=== PATIENT | female | born 1950 | race African-American/Black ===

== ENCOUNTER → 2018-10-19 | Outpatient (CLI) | payer MEDICARE, BC ==
--- NOTE | 2018-10-19 10:24 | CARD ---
MR#: [id number] Date of Study: 10/19/2018 Ordering Physician: JESS GAVIN, Referring Physician: JESS GAVIN Tech: Kalani Holden RDCS APPROVED REPORT EXAM: Two-dimensional and M-mode echocardiogram with Doppler and color Doppler. Other Information Quality : Good INDICATION Hypertension/HCVD 2D DIMENSIONS RVDd3.1 (2.9-3.5cm)Left Atrium(2D)3.6 (1.6-4.0cm) IVSd1.1 (0.7-1.1cm)Aortic Root(2D)2.9 (2.0-3.7cm) LVDd4.9 (3.9-5.9cm)LVOT Diameter2.0 (1.8-2.4cm) PWd1.1 (0.7-1.1cm)LVDs3.2 (2.5-4.0cm) FS (%) 34.1 %SV70.3 ml Aortic Valve AoV Peak Federico.180.3cm/sAoV VTI35.5cm AO Peak GR.13.0mmHgLVOT Peak Federico.116.1cm/s LVOT VTI 25.90cmAO Mean GR.7mmHg GISSEL (VMAX)2.73oc2XJW (VTI)2.32cm2 Mitral Valve MV E Znufcahu96.5cm/sMV DECEL TFZH852ud MV A Tyyddbto957.8cm/sMV XIF64sw E/A Ratio0.8MVA (PHT)2.80cm2 TDI E/Lateral E'9.2E/Medial E'12.3 Tricuspid Valve TR P. Adntsmha908ml/sRAP WSKRXXHG8lcWh TR Peak Gr.68ckFnQMMQ94brAs Pulmonary Vein S1 Xwjardqe38.2cm/sD2 Ysjpexoa51.5cm/s LEFT VENTRICLE The left ventricle is normal size. There is normal left ventricular wall thickness. The left ventricu lar systolic function is normal and the ejection fraction is within normal range. The Ejection Fracti on is 55-60%. There is normal LV segmental wall motion. Transmitral Doppler flow pattern is Grade I-a bnormal relaxation pattern. RIGHT VENTRICLE The right ventricle is normal size. The right ventricular systolic function is normal. ATRIA The left atrium size is normal. The right atrium size is normal. The interatrial septum is intact wit h no evidence for an atrial septal defect or patent foramen ovale as noted on 2-D or Doppler imaging. AORTIC VALVE The aortic valve is calcified but opens well. Doppler and Color Flow revealed no significant aortic r egurgitation. There is no significant aortic valvular stenosis. MITRAL VALVE The mitral valve is calcified but opens well. Mitral annular calcification is mild. There is no evide nce of mitral valve prolapse. There is no mitral valve stenosis. Doppler and Color-flow revealed trac e mitral regurgitation. TRICUSPID VALVE The tricuspid valve is normal in structure and function. Doppler and Color Flow revealed trace to mil d tricuspid regurgitation. The PA pressure was estimated at 37 mmHg. There is no tricuspid valve sten osis. PULMONIC VALVE The pulmonary valve is normal in structure and function. Doppler and Color Flow revealed no pulmonic valvular regurgitation. There is no pulmonic valvular stenosis. GREAT VESSELS The aortic root is normal in size. The ascending aorta is normal in size. The IVC is normal in size a nd collapses >50% with inspiration. PERICARDIAL EFFUSION There is no evidence of significant pericardial effusion. Critical Notification Critical Value: No <Conclusion> The left ventricle is normal size. The left ventricular systolic function is normal and the ejection fraction is within normal range. The Ejection Fraction is 55-60%. There is no significant aortic valvular stenosis. Doppler and Color Flow revealed no significant aortic regurgitation. Doppler and Color-flow revealed trace mitral regurgitation. Doppler and Color Flow revealed trace to mild tricuspid regurgitation. The PA pressure was estimated at 37 mmHg. Signed by : Jaden Ramirez MD Electronically Approved : 10/19/2018 10:23:47
== END | disposition home or self-care (01) ==
LOC: ECHO 08:39
PROVIDERS: ATTEND Internal Medicine Cardiovascular Disease
DX: I08.3 Combined rheumatic disorders of mitral, aortic and tricuspid valves (principal); I11.9 Hypertensive heart disease without heart failure
CPT/HCPCS: 93306

== ENCOUNTER → 2018-10-26 | Outpatient (CLI) | payer MEDICARE, BC ==
--- NOTE | 2018-10-26 10:40 | RAD ---
MR#: [id number] Date of Study: 10/26/2018 Ordering Physician: JESS GAVIN, Referring Physician: JESS GAVIN, Tech: Mely Parada RDMS, DONALDO, RTR APPROVED REPORT Patient Location : OUT-PATIENT Indications Lower Extremity Edema : Bilateral Greater Saphenous Veins (GSV) Significant venous relux noted in the RIGHT GSV at the following levels : Superficial Femoral Junctio n, Proximal Thigh, Mid Thigh, Proximal Calf, Mid Calf, Distal Calf Significant venous relux noted in the LEFT GSV at the following levels : Superficial Femoral Junction , Proximal Thigh, Mid Thigh, Distal Thigh, Proximal Calf, Mid Calf, Distal Calf Findings Grayscale images of the bilateral lower extremity superficial veins do not reveal any obvious evidenc e of thrombus. The right great saphenous vein measures 6.3 mm and has a maximum reflux time of 1.3 seconds. The left great saphenous vein measures approximately 8 mm and has a maximum reflux time of 1.3 seconds. The bilateral lesser saphenous veins do not show any evidence of reflux. Critical Notification Critical Value: No <Conclusion> 1. Mild bilateral greater saphenous vein reflux, correlate with clinical symptoms. Signed by : Robson Cisneros, Electronically Approved : 10/26/2018 10:40:06
== END | disposition home or self-care (01) ==
LOC: US 08:34
PROVIDERS: ATTEND Internal Medicine Cardiovascular Disease
DX: R60.0 Localized edema (principal)
CPT/HCPCS: 93970

== ENCOUNTER → 2020-08-25 | Outpatient (CLI) | payer MEDICARE, BC ==
--- NOTE | 2020-08-25 17:32 | CARD ---
MR#: [id number] Date of Study: 08/25/2020 Ordering Physician: JESS GAVIN, Referring Physician: JESS GAVIN Tech: Sonja Alves [facility] [[email or web address]] APPROVED REPORT EXAM: Two-dimensional and M-mode echocardiogram with Doppler and color Doppler. Other Information Quality : AverageHR: 51bpm Rhythm : NSR INDICATION Dyspnea RISK FACTORS Hypertension Obesity Hyperlipidemia 2D DIMENSIONS RVDd3.0 (2.9-3.5cm)Left Atrium(2D)3.7 (1.6-4.0cm) IVSd0.9 (0.7-1.1cm)Aortic Root(2D)3.3 (2.0-3.7cm) LVDd5.1 (3.9-5.9cm)LVOT Diameter1.9 (1.8-2.4cm) PWd0.9 (0.7-1.1cm)LVDs3.6 (2.5-4.0cm) FS (%) 29.0 %SV69.3 ml LVEF(%)55.3 (>50%) Aortic Valve AoV Peak Federico.162.9cm/sAoV VTI42.5cm AO Peak GR.10.6mmHgLVOT Peak Federico.114.6cm/s AO Mean GR.6mmHgAVA (VMAX)1.96cm2 Mitral Valve MV E Cwyqdtlc50.0cm/sMV DECEL ZZDP887aj MV A Oooamdkb21.3cm/sE/A Ratio1.0 Tricuspid Valve TR P. Odulyrlk472lx/sTR Peak Gr.29mmHg Pulmonary Vein S1 Wyxxmdji88.3cm/sD2 Frpfqoum28.1cm/s PVa sisyzisu952efmw LEFT VENTRICLE The left ventricle is normal size. There is normal left ventricular wall thickness. There is a small area of increased echodensity in the distal anterior lateral wall which moves normally. The left vent ricular systolic function is normal and the ejection fraction is within normal range. Estimated ejec tion fraction 55-60%. There is normal LV segmental wall motion. The left ventricular diastolic functi on and filling is normal for age. RIGHT VENTRICLE The right ventricle is normal size. There is normal right ventricular wall thickness. The right ventr icular systolic function is normal. ATRIA The left atrium size is normal. The right atrium size is normal. The interatrial septum is intact wit h no evidence for an atrial septal defect or patent foramen ovale as noted on 2-D or Doppler imaging. AORTIC VALVE The aortic valve is normal in structure and function. Doppler and Color Flow revealed no significant aortic regurgitation. There is no significant aortic valvular stenosis. MITRAL VALVE The mitral valve is normal in structure and function. There is no evidence of mitral valve prolapse. There is no mitral valve stenosis. Doppler and Color-flow revealed trace to mild mitral regurgitation . TRICUSPID VALVE The tricuspid valve is normal in structure and function. Doppler and Color Flow revealed no tricuspid valve regurgitation noted. There is no tricuspid valve stenosis. PULMONIC VALVE The pulmonary valve is normal in structure and function. Doppler and Color Flow revealed trace pulmon ic valvular regurgitation. GREAT VESSELS The aortic root is normal in size. The ascending aorta is normal in size. The IVC is normal in size a nd collapses >50% with inspiration. PERICARDIAL EFFUSION There is no evidence of significant pericardial effusion. Critical Notification Critical Value: No <Conclusion> The left ventricle is normal size. The left ventricular systolic function is normal and the ejection fraction is within normal range. Estimated ejection fraction 55-60%. There is normal LV segmental wall motion. Doppler and Color Flow revealed no significant aortic regurgitation. There is no significant aortic valvular stenosis. Doppler and Color-flow revealed trace to mild mitral regurgitation. Doppler and Color Flow revealed no tricuspid valve regurgitation noted. Signed by : Jaden Ramirez MD Electronically Approved : 08/25/2020 17:32:02
== END ==
LOC: ECHO 08:06
PROVIDERS: ATTEND Internal Medicine Cardiovascular Disease
DX: I34.0 Nonrheumatic mitral (valve) insufficiency (principal); I10 Essential (primary) hypertension
CPT/HCPCS: 93306

== ENCOUNTER → 2021-09-20 | Outpatient (CLI) | payer MEDICARE, BC ==
--- NOTE | 2021-09-20 15:18 | CARD ---
MR#: [id number] Date of Study: 09/20/2021 Ordering Physician: JESS PERRY, Referring Physician: Yi SANCHEZ: Sunny Garcia [facility] [[email or web address]] APPROVED REPORT EXAM: Two-dimensional and M-mode echocardiogram with Doppler and color Doppler. Other Information Quality : GoodHR: 58bpm Rhythm : NSR INDICATION Hypertension/HCVD RISK FACTORS Hypertension Obesity 2D DIMENSIONS Left Atrium(2D)4.1 (1.6-4.0cm)IVSd1.0 (0.7-1.1cm) Aortic Root(2D)3.3 (2.0-3.7cm)LVDd5.5 (3.9-5.9cm) LVOT Diameter2.0 (1.8-2.4cm)PWd0.9 (0.7-1.1cm) LA Ikitcu02 (18-58mL)LVDs3.7 (2.5-4.0cm) FS (%) 33.5 %SV90.9 ml LVEF(%)61.6 (>50%) Aortic Valve AoV Peak Federico.156.4cm/sAoV VTI36.7cm AO Peak GR.9.8mmHgLVOT Peak Federico.81.2cm/s LVOT VTI 21.30cmAO Mean GR.5mmHg GISSEL (VMAX)1.92xc4ZSY (VTI)1.81cm2 Mitral Valve MV E Zguweeoa07.7cm/sMV DECEL QRMF625by MV A Wwrpshod36.4cm/sMV OKD76lr E/A Ratio0.9MVA (PHT)3.42cm2 TDI E/Lateral E'8.0E/Medial E'12.5 Pulmonary Valve PV Peak Ffdxgjwa773.2cm/sPV Peak Grad.7mmHg Tricuspid Valve TR P. Wgdwzajs681js/sTR Peak Gr.21mmHg Pulmonary Vein S1 Lratoaae53.7cm/sD2 Ypvzvofm86.7cm/s LEFT VENTRICLE The left ventricle is normal size. There is normal left ventricular wall thickness. The left ventricu lar systolic function is normal. The ejection fraction is 55-60%. There is normal LV segmental wall m otion. Transmitral Doppler flow pattern is Grade I-abnormal relaxation pattern. No left ventricle thr ombus noted on this study. There is no ventricular septal defect visualized. There is no left ventric ular aneurysm. There is no mass noted in the left ventricle. RIGHT VENTRICLE The right ventricle is normal size. There is normal right ventricular wall thickness. The right ventr icular systolic function is normal. ATRIA The left atrium is mildly dilated. The right atrium size is normal. The interatrial septum is intact with no evidence for an atrial septal defect or patent foramen ovale as noted on 2-D or Doppler imagi ng. AORTIC VALVE The aortic valve is mildly sclerotic. Doppler and Color Flow revealed no significant aortic regurgita tion. There is no significant aortic valvular stenosis. There is no aortic valvular vegetation. MITRAL VALVE The mitral valve is normal in structure and function. There is no evidence of mitral valve prolapse. There is no mitral valve stenosis. Doppler and Color-flow revealed trace mitral regurgitation. TRICUSPID VALVE The tricuspid valve is normal in structure and function. Doppler and Color Flow revealed trace tricus pid regurgitation. There is no tricuspid valve prolapse or vegetation. There is no tricuspid valve st enosis. PULMONIC VALVE The pulmonary valve is normal in structure and function. Doppler and Color Flow revealed no pulmonic valvular regurgitation. There is no pulmonic valvular stenosis. GREAT VESSELS The aortic root is normal in size. The ascending aorta is normal in size. The pulmonary artery is nor mal. The IVC is normal in size and collapses >50% with inspiration. PERICARDIAL EFFUSION There is no pleural effusion. There is no evidence of significant pericardial effusion. Critical Notification Critical Value: No <Conclusion> The left ventricular systolic function is normal. The ejection fraction is 55-60%. There is normal LV segmental wall motion. Transmitral Doppler flow pattern is Grade I-abnormal relaxation pattern. Trace mitral regurgitation. Trace tricuspid regurgitation. There is no evidence of significant pericardial effusion. Signed by : Jess Perry, Electronically Approved : 09/20/2021 15:17:56
== END ==
LOC: ECHO 13:39
PROVIDERS: ATTEND Internal Medicine Cardiovascular Disease
DX: I35.1 Nonrheumatic aortic (valve) insufficiency (principal); I10 Essential (primary) hypertension
CPT/HCPCS: 93306; C8929